=== PATIENT | female | born 1965 | race Two or more races ===

== ENCOUNTER 2019-09-27 14:38 | Emergency (ER) | payer BC ==
[2019-09-27] MEDS ORDERED: METHOCARBAMOL 500 MG TABLET PO ONE (15:08)
[2019-09-27] MEDS ORDERED: IBUPROFEN 600 MG TABLET (FP) PO ONE ×2 (15:08→15:15)
--- NOTE | 2019-09-27 15:08 | PDOC ---
Documentation entered by Yazan Hendrickson SCRIBE, acting as scribe for Shae Booth DO. Shae Booth, DO: This documentation has been prepared by the Emeka myers Daniel, SCRIBE, under my direction and personally reviewed by me in its entirety. I confirm that the documentation accurately reflects all work, treatment, procedures, and medical decision making performed by me. History of Present Illness - General Chief Complaint: Pain Stated Complaint: BACK PAIN RADIATES TO LEFT LOWER ABDOMEN Time Seen by Provider: 09/27/19 14:41 History Source: Patient Exam Limitations: No Limitations - History of Present Illness Initial Comments: 09/27/19 15:03 The patient is a 53 year old female with a past medical history of leukemia ( cured 12 years ago) here today for evaluation of left sided back pain. The patient reports that her back pain began on (09/23/19) after she finished performing some chores and denies any heavy lifting or strenuous activity. She states that her pain radiates from her left back to the left side of her abdomen, is worse with deep breaths and certain motions, and better with motrin (last taken last night) and heat. Patient denies headache, lightheadedness. Denies fever, chills. Denies chest pain, shortness of breath. Denies nausea, vomiting, diarrhea. Denies urinary symptoms. Allergies: NKA Past History - Past Medical History Allergies/Adverse Reactions: Allergies Allergy/AdvReac Type Severity Reaction Status Date / Time No Known Allergies Allergy Unverified 09/27/19 14:40 Home Medications: Ambulatory Orders Amlodipine Besylate 5 mg PO DAILY 09/27/19 Metformin HCl [Glucophage] 500 mg PO DAILY 09/27/19 Rosuvastatin Calcium [Crestor] 10 mg PO DAILY 09/27/19 Review of Systems - Review of Systems Able to Perform ROS?: Yes Comments:: 09/27/19 15:03 GENERAL/CONSTITUTIONAL: No fever or chills. No weakness. HEAD, EYES, EARS, NOSE AND THROAT: No change in vision. No ear pain or discharge. No sore throat. GASTROINTESTINAL: No nausea, vomiting, diarrhea or constipation. GENITOURINARY: No dysuria, frequency, or change in urination. CARDIOVASCULAR: No chest pain or shortness of breath. RESPIRATORY: No cough, wheezing, or hemoptysis. MUSCULOSKELETAL: +left sided back pain radiating to abdomen. No joint or muscle swelling or pain. No neck pain. SKIN: No rash NEUROLOGIC: No headache, vertigo, loss of consciousness, or change in strength/ sensation. ENDOCRINE: No increased thirst. No abnormal weight change. HEMATOLOGIC/LYMPHATIC: No anemia, easy bleeding, or history of blood clots. ALLERGIC/IMMUNOLOGIC: No hives or skin allergy. *Physical Exam - Vital Signs Last Vital Signs Temp Pulse Resp BP Pulse Ox 98 F 84 16 145/90 97 09/27/19 14:40 09/27/19 14:40 09/27/19 14:40 09/27/19 14:40 09/27/19 14:40 - Physical Exam 09/27/19 15:04 Constitutional: Awake, alert, oriented. No acute distress. Head: Normocephalic. Atraumatic Eyes: PERRL. EOMI. Conjunctivae are not pale. ENT: Mucous membranes are moist and intact. Posterior pharynx without exudates or erythema. Uvula midline. Neck: Supple. Full ROM. No lymphadenopathy. Cardiovascular: Regular rate. Regular rhythm. S1, S2 regular. Distal pulses are 2+ and symmetric. Pulmonary/Chest: No evidence of respiratory distress. Clear to auscultation bilaterally No wheezing, rales or rhonchi. Abdominal: +left upper and lower abdominal tenderness. +left flank tenderness. Soft and non-distended. No rebound, guarding or rigidity. No organomegaly. No palpable masses. Good bowel sounds. Back: No CVA tenderness. Musculoskeletal: +left paraspinal tenderness. +bilateral CVA tenderness. No edema. No cyanosis. No clubbing. Full range of motion in all extremities. No calf tenderness. Radial/pedal pulses are intact and 2+ bilaterally Skin: Skin is warm and dry. No petechiae. No purpura. Neurological: Alert and oriented to person, place, and time. Cranial nerves II -XII are grossly intact. Normal speech. Strength is grossly symmetric. No sensory deficits. Psychiatric: Good eye contact. Normal interaction, affect and behavior. ED Treatment Course - LABORATORY CBC & Chemistry Diagram: 09/27/19 15:10 09/27/19 15:07 - RADIOLOGY Radiology Studies Ordered: Category Date Time Status ABDOMEN & PELVIS CT W/O CONTR [CT] Stat CT Scan 09/27/19 15:04 Ordered Medical Decision Making - Medical Decision Making 09/27/19 15:06 I, Dr. Shae Booth, DO, attest that this document has been prepared under my direction and personally reviewed by me in its entirety. I further attest, that it accurately reflects all work, treatment, procedures and medical decision -making performed by me. a/p: 53yo female with hx of leukemia - in remission with L flank pain after cleaning the house on -has been taking motrin with relief of pain, but it comes back -no assoc n/v/d -no dysuria, hematuria, no urinary complaints -pt with L flank pain, paraspinal back pain- ddx contains renal colic, pyelo, msk pain from cleaning -will medicate with toradol and robaxin -will monitor and reassess - and pt notified of the plan -will check labs given hx of leukemia 09/27/19 15:37 wbc not elevated trace blood in urine ct pending 09/27/19 17:01 labs reviewed no acute findings on ct 1cm l adrnal nodule pt updated on findings given po challenge recommended rest stable for dc to home with tylenol and motrin for pain Discharge - Discharge Information Problems reviewed: Yes Clinical Impression/Diagnosis: Back pain, Flank pain, Adrenal nodule Condition: Stable Disposition: HOME - Admission No - Follow up/Referral Referrals: Roshan Fitzgerald MD [Staff Physician] - Dr. LOLI [Other] - Patient Discharge Instructions Patient Printed Discharge Instructions: DI for Flank Pain, DI for Low Back Pain Additional Instructions: Please take tylenol or motrin as needed for pain. Please avoid heavy lifting. Please follow up with the back specialist/orthopedist for further evaluation. Please rest and soak in a hot bath with epsom salt. Please take the motrin with food or milk. please return to the ED with any further concerns or complaints. - Post Discharge Activity
[2019-09-27] MEDS ORDERED: METHOCARBAMOL 500 MG TABLET ONE (15:15)
[2019-09-27 15:20] LABS: BASO % 0.4 % (0-2.0); EOS % 1.1 % (0-4.5); HEMATOCRIT 37.3 % (32.4-45.2); HEMOGLOBIN 12.2 GM/dl (10.7-15.3); LYMPH % 43.9 % (8-40); MCH 29.8 pg (25.7-33.7); MCHC 32.7 g/dl (32.0-36.0); MEAN PLT VOLUME 8.9 fl (7.5-11.1); MONO % 5.4 % (3.8-10.2); NEUT % 49.2 % (42.8-82.8); PLATELET COUNT 170 K/MM3 (134-434); RBC 4.09 M/mm3 (3.60-5.2); RDW 12.9 % (11.6-15.6); WHITE BLOOD COUNT 7.7 K/mm3 (4.0-10.8)
[2019-09-27 15:28] VITALS: BP 145/90; PULSE 84; TEMP 98; BMI 29.2
[2019-09-27 15:57] LABS: ALBUMIN 4.1 g/dl (3.4-5.0); BILIRUBIN,TOTAL 0.5 mg/dl (0.2-1); CALCIUM 9.4 mg/dl (8.5-10); CREATININE 0.6 mg/dl (0.55-1.3); POTASSIUM 3.8 mmol/L (3.5-5.1); TOT PROT 7.6 g/dl (6.4-8.2)
== END 2019-09-27 17:25 | disposition home or self-care (01) ==
LOC: FER 14:38
DX: M54.9 Dorsalgia, unspecified (principal); R10.30 Lower abdominal pain, unspecified; C95.90 Leukemia, unspecified not having achieved remission
CPT/HCPCS: 36415; 74176-TC; 80053; 81003; 81015; 85025; 99283-25

== ENCOUNTER 2021-12-27 06:43 | Day surgery (SDC) | payer BC ==
[2021-12-25 16:36] VITALS: BMI 28.3
[2021-12-27] MEDS ORDERED: LIDOCAINE HCL/PF 2% SDV 5ML VIAL ONE (07:14)
[2021-12-27] MEDS ORDERED: PROPOFOL 20 ML ONE (07:14)
[2021-12-27 08:12] VITALS: PULSE 73; TEMP 98
[2021-12-27 09:00] VITALS: BP 125/74
== END 2021-12-27 09:01 | disposition home or self-care (01) ==
LOC: FASU-ENDO 06:43
PROVIDERS: ATTEND Internal Medicine Gastroenterology
PROC: 0DB68ZX Excision of Stomach, Via Natural or Artificial Opening Endoscopic, Diagnostic (ICD-10-PCS; 2021-12-27)
PROC: 0DB98ZX Excision of Duodenum, Via Natural or Artificial Opening Endoscopic, Diagnostic (ICD-10-PCS; principal; 2021-12-27 07:48)
DX: K29.50 Unspecified chronic gastritis without bleeding (principal); K31.7 Polyp of stomach and duodenum; K31.9 Disease of stomach and duodenum, unspecified; R10.13 Epigastric pain; R11.0 Nausea
CPT/HCPCS: 82962; 88305-TC; 88342-TC

== ENCOUNTER 2022-09-24 05:16 | Emergency (ER) | payer BC ==
[2022-09-24 05:30] VITALS: BP 120/76; PULSE 104; RESP 18; TEMP 99; BMI 27.4
[2022-09-24] MEDS ORDERED: SODIUM CHLORIDE 1,000 ML IV ONE (05:38)
[2022-09-24] MEDS ORDERED: AZITHROMYCIN 250 MG TABLET PO STA (05:42)
[2022-09-24] MEDS ORDERED: ALBUTEROL SO4 2.5/IPRATROPIUM 0.5 INH SOL 3 ML VIAL.NEB. NEB STA (05:43)
[2022-09-24] MEDS ORDERED: ALBUTEROL SO4 2.5/IPRATROPIUM 0.5 INH SOL 3 ML VIAL.NEB. NEB ONE (05:50)
[2022-09-24] MEDS ORDERED: AZITHROMYCIN 250 MG TABLET ONE (05:50)
[2022-09-24 06:52] LABS: HEMATOCRIT 41.2 % (32.4-45.2); HEMOGLOBIN 13.2 GM/dL (10.7-15.3); MCH 29.2 pg (25.7-33.7); MCHC 32.1 g/dl (32.0-36.0); MEAN PLT VOLUME 9.3 fl (7.5-11.1); PLATELET COUNT 146 10^3/uL (134-434); RBC 4.53 M/mm3 (3.60-5.2); RDW 13.6 % (11.6-15.6); WHITE BLOOD COUNT 5.2 K/mm3 (4.0-10.0)
[2022-09-24 07:12] LABS: ALBUMIN 3.6 g/dl (3.4-5.0); CALCIUM 8.7 mg/dL (8.5-10.1)
[2022-09-24 07:13] LABS: BLOOD UREA NITROGEN 13.5 mg/dL (7-18)
[2022-09-24 07:16] LABS: CREATININE 0.9 mg/dL (0.55-1.3)
[2022-09-24 07:17] LABS: BILIRUBIN,TOTAL 0.4 mg/dL (0.2-1); TOT PROT 7.5 g/dl (6.4-8.2)
== END 2022-09-24 07:40 | disposition home or self-care (01) ==
LOC: FER 05:16
PROC: 3E0337Z Introduction of Electrolytic and Water Balance Substance into Peripheral Vein, Percutaneous Approach (ICD-10-PCS; principal; 2022-09-24)
PROC: 3E0337Z Introduction of Electrolytic and Water Balance Substance into Peripheral Vein, Percutaneous Approach (ICD-10-PCS; 2022-09-24)
DX: J06.9 Acute upper respiratory infection, unspecified (principal)
CPT/HCPCS: 36415; 71045-TC-FY; 80053; 82550; 84484; 85027; 93005; 99285-25

== ENCOUNTER 2022-10-19 08:12 | Emergency (ER) | payer BC ==
[2022-10-19 08:33] VITALS: BP 142/95; PULSE 104; RESP 20; TEMP 98.6; BMI 27.4
[2022-10-19] MEDS ORDERED: ACETAMINOPHEN 500 MG TABLET (FP) PO ONE (09:01)
[2022-10-19] MEDS ORDERED: ACETAMINOPHEN 325 MG TABLET (FP) ONE (09:05)
[2022-10-19] MEDS ORDERED: IBUPROFEN 600 MG TABLET (FP) PO ONE ×2 (09:05→09:16)
[2022-10-19 09:11] LABS: HEMATOCRIT 36.6 % (32.4-45.2); HEMOGLOBIN 12.4 G/dL (10.7-15.3); MCH 30.6 pg (25.7-33.7); MCHC 33.8 g/dl (32.0-36.0); MEAN CELL VOLUME 90.6 fl (80-96); MEAN PLT VOLUME 8.5 fl (7.5-11.1); PLATELET COUNT 162.8 10^3/uL (134-434); RBC 4.04 10^6/uL (3.60-5.2); RDW 13.8 % (11.6-15.6)
[2022-10-19 09:18] LABS: ALBUMIN 3.6 g/dl (3.4-5.0); BILIRUBIN,TOTAL 0.6 mg/dl (0.2-1); CALCIUM 9.2 mg/dl (8.5-10); CREATININE 0.6 mg/dl (0.55-1.3); TOT PROT 6.6 g/dl (6.4-8.2)
== END 2022-10-19 09:33 | disposition home or self-care (01) ==
LOC: FER 08:12
DX: B02.9 Zoster without complications (principal); S22.39XA Fracture of one rib, unspecified side, initial encounter for closed fracture; Y99.9 Unspecified external cause status
CPT/HCPCS: 0241U-QW; 36415; 71046-TC-FY; 71101-TC-LT-FY; 80053; 84484; 85027; 93005; 99285-25

== ENCOUNTER 2023-07-10 07:03 | Day surgery (SDC) | payer BC ==
[2023-07-09 13:47] VITALS: BMI 27.9
[2023-07-10] MEDS ORDERED: LIDOCAINE HCL/PF 2% SDV 5ML VIAL ONE (07:12)
[2023-07-10] MEDS ORDERED: PROPOFOL 120 ML ONE (07:13)
[2023-07-10 07:29] VITALS: RESP 18
[2023-07-10 08:56] VITALS: TEMP 97.2
[2023-07-10 09:13] VITALS: BP 110/60; PULSE 72
== END 2023-07-10 09:20 | disposition home or self-care (01) ==
LOC: FASU-ENDO 07:03
PROVIDERS: ATTEND Internal Medicine Gastroenterology
PROC: 0DJD8ZZ Inspection of Lower Intestinal Tract, Via Natural or Artificial Opening Endoscopic (ICD-10-PCS; principal; 2023-07-10 08:31)
DX: Z12.11 Encounter for screening for malignant neoplasm of colon (principal)
CPT/HCPCS: 82962

== ENCOUNTER 2023-09-21 11:02 | Emergency (ER) | payer BC ==
[2023-09-21] MEDS ORDERED: ACETAMINOPHEN 500 MG TABLET (FP) PO ONE (11:14)
[2023-09-21] MEDS ORDERED: METHOCARBAMOL 500 MG TABLET PO ONE (11:14)
[2023-09-21 11:17] VITALS: BP 124/76; PULSE 89; RESP 18; TEMP 98.7; BMI 28.1
[2023-09-21] MEDS ORDERED: ACETAMINOPHEN 500 MG TABLET (FP) ONE (11:17)
[2023-09-21] MEDS ORDERED: METHOCARBAMOL 500 MG TABLET ONE (11:17)
[2023-09-21 11:50] LABS: HEMATOCRIT 36.9 % (32.4-45.2); HEMOGLOBIN 12.5 G/dL (10.7-15.3); MCH 30.7 pg (25.7-33.7); MCHC 33.7 g/dl (32.0-36.0); MEAN PLT VOLUME 8.8 fl (7.5-11.1); PLATELET COUNT 180.5 10^3/uL (134-434); RBC 4.05 10^6/uL (3.60-5.2); WHITE BLOOD COUNT 6.5 10^3/uL (4.0-10.8)
[2023-09-21 11:53] LABS: PLATELET ESTIMATE ADEQUATE
[2023-09-21 11:56] LABS: EPITHELIAL CELLS R /hpf
[2023-09-21 11:57] LABS: ALBUMIN 4.4 g/dl (3.4-5.0); BILIRUBIN,TOTAL 0.4 mg/dl (0.2-1); CALCIUM 9.3 mg/dl (8.5-10.1); CREATININE 0.8 mg/dl (0.6-1.3); POTASSIUM 3.8 mmol/L (3.5-5.1); TOT PROT 7.3 g/dl (6.4-8.2)
[2023-09-21] MEDS ORDERED: LIDOCAINE 5% TOPICAL PATCH TP ONE (13:12)
[2023-09-21] MEDS ORDERED: LIDOCAINE 5% TOPICAL PATCH ONE (13:14)
[2023-09-21] MEDS ORDERED: LIDOCAINE PATCH REMOVAL MC SCH (22:00)
== END 2023-09-21 14:00 | disposition home or self-care (01) ==
LOC: FER 11:02 → SUPCPDRO 11:02 → FER 14:00
DX: M54.50 Low back pain, unspecified (principal); S32.018A Other fracture of first lumbar vertebra, initial encounter for closed fracture; X50.0XXA Overexertion from strenuous movement or load, initial encounter
CPT/HCPCS: 36415; 72100-TC-FY; 80053; 80061; 81003; 81015; 83036; 85027; 99284-25

== ENCOUNTER 2023-11-28 06:40 | Emergency (ER) | payer BC ==
[2023-11-28 06:49] VITALS: BP 161/102; PULSE 83; RESP 16; TEMP 97.8; BMI 28.1
[2023-11-28] MEDS ORDERED: KETOROLAC TROMETHAMINE 15 MG/ML VIAL ONE (07:05)
[2023-11-28] MEDS: KETOROLAC TROMETHAMINE 15 MG/ML VIAL IVPUSH ONE (07:06)
[2023-11-28 08:02] LABS: HEMOGLOBIN 12.9 G/dL (10.7-15.3); MCH 30.2 pg (25.7-33.7); MCHC 33.1 g/dl (32.0-36.0); MEAN CELL VOLUME 91.2 fl (80-96); MEAN PLT VOLUME 10.2 fl (7.5-11.1); PLATELET COUNT 154.2 10^3/uL (134-434); RBC 4.28 10^6/uL (3.60-5.2); RDW 14.3 % (11.6-15.6); WHITE BLOOD COUNT 7.7 10^3/uL (4.0-10.8)
[2023-11-28 08:29] LABS: INR 0.9 (0.83-1.09); PROTHROMBIN TIME (PATIENT) 10.5 SEC (9.7-13.0)
[2023-11-28 08:32] LABS: ACTIVATED PTT 30.1 SECONDS (25.2-36.5)
[2023-11-28 09:00] LABS: ALBUMIN 4.5 g/dl (3.4-5.0); BILIRUBIN,TOTAL 0.5 mg/dl (0.2-1); CREATININE 0.7 mg/dl (0.6-1.3); POTASSIUM 3.7 mmol/L (3.5-5.1); TOT PROT 7.3 g/dl (6.4-8.2)
[2023-11-28 09:01] LABS: CHOLESTEROL 334 mg/dl (50-200); HDL CHOLESTEROL 59 mg/dl (40-60); LDL CHOLESTEROL (ONLY DFH) 230 mg/dl (5-100)
[2023-11-28 09:28] LABS: PLATELET ESTIMATE ADEQUATE
== END 2023-11-28 12:31 | disposition home or self-care (01) ==
LOC: FER 06:40
PROC: 3E0333Z Introduction of Anti-inflammatory into Peripheral Vein, Percutaneous Approach (ICD-10-PCS; principal; 2023-11-28)
DX: R10.32 Left lower quadrant pain (principal); Z20.822 Contact with and (suspected) exposure to COVID-19
CPT/HCPCS: 0241U-QW; 36415; 74177-TC; 76700-TC; 80053; 80061; 81003; 83036; 83605; 83690; 85027; 85610; 85730; 86140; 86850; 86900; 86901; 99285-25; Q9967

== ENCOUNTER 2024-06-01 09:09 | Emergency (ER) | payer BC ==
[2024-06-01 09:30] VITALS: BP 153/62; PULSE 76; RESP 18; TEMP 97.5; BMI 26.7
[2024-06-01] MEDS: ONDANSETRON 4 MG/2 ML VIAL IVPUSH ONE (10:00)
[2024-06-01] MEDS ORDERED: ACETAMINOPHEN INJECTION 100 ML IVPB ONE (10:03)
[2024-06-01] MEDS ORDERED: ONDANSETRON 4 MG/2 ML VIAL ONE (10:03)
[2024-06-01] MEDS: ACETAMINOPHEN 1000 MG/100 ML BAG IVPB ONE (10:10)
[2024-06-01 10:15] LABS: HEMATOCRIT 40.3 % (32.4-45.2); HEMOGLOBIN 12.9 G/dL (10.7-15.3); MCH 29.2 pg (25.7-33.7); MCHC 32.1 g/dl (32.0-36.0); MEAN CELL VOLUME 90.9 fl (80-96); MEAN PLT VOLUME 9.7 fl (7.5-11.1); PLATELET COUNT 150.6 10^3/uL (134-434); RBC 4.43 10^6/uL (3.60-5.2); RDW 13.8 % (11.6-15.6); WHITE BLOOD COUNT 5.9 10^3/uL (4.0-10.8)
[2024-06-01 10:31] LABS: ALBUMIN 4.2 g/dl (3.4-5.0); BILIRUBIN,TOTAL 0.4 mg/dl (0.2-1); CALCIUM 9.4 mg/dl (8.5-10.1); CREATININE 0.6 mg/dl (0.6-1.3); MAGNESIUM 1.8 mg/dL (1.8-2.4); TOT PROT 6.8 g/dl (6.4-8.2)
[2024-06-01 10:44] LABS: PLATELET ESTIMATE ADEQUATE
== END 2024-06-01 12:37 | disposition home or self-care (01) ==
LOC: FER 09:09
PROC: 3E033NZ Introduction of Analgesics, Hypnotics, Sedatives into Peripheral Vein, Percutaneous Approach (ICD-10-PCS; principal; 2024-06-01)
PROC: 3E033GC Introduction of Other Therapeutic Substance into Peripheral Vein, Percutaneous Approach (ICD-10-PCS; 2024-06-01)
DX: R10.84 Generalized abdominal pain (principal); R11.0 Nausea; K57.30 Diverticulosis of large intestine without perforation or abscess without bleeding
CPT/HCPCS: 36415; 74177-TC; 80053; 81003; 82465; 83605; 83690; 83735; 85027; 87086; 93005; 99285-25; J0131; Q9967